=== PATIENT | female | born 1940 | race African-American/Black ===

== ENCOUNTER 2018-01-12 18:22 | Emergency (ER) | payer OTHER ==
[~2018-01-12] VITALS: Ht 162.6 cm; Wt 62.6 kg
[2018-01-12 19:11] LABS: HEMATOCRIT 35.1 % (36.0-46.0); MCH 30.6 PG (29.0-34.0); MCHC 34.2 G/DL (30.0-36.0); MCV 89.5 FL (83-99); PLATELET COUNT 231 K/uL (156-360); RBC DIS.WIDTH-CV 11.5 % (11.8-14.6); RBC DIS.WIDTH-SD 36.9 % (39-53); RED BLOOD COUNT 3.92 M/uL (3.80-5.20); WHITE BLOOD COUNT 7.9 K/uL (4.1-10.2)
[2018-01-12 19:26] LABS: CHLORIDE 98 mEq/L (99-109); SODIUM 140 mEq/L (136-147)
[2018-01-12 19:27] LABS: GLUCOSE 101 mg/dL (70-99)
[2018-01-12 19:31] LABS: CREATININE 0.6 mg/dL (0.6-1.3)
[2018-01-12 19:32] LABS: TROP-I INTERPRETATION NEGATIVE; TROPONIN-I < 0.01 ng/mL (0.0-0.30); UREA NITROGEN (BUN) 12 mg/dL (9-23)
[2018-01-12 19:51] LABS: GFR ESTIMATE (CALCULATED) > 59 mL/min/
[2018-01-12 22:16] LABS: TROP-I INTERPRETATION NEGATIVE; TROPONIN-I 0.01 ng/mL (0.0-0.30)
[2018-01-12] MEDS ORDERED: PRINIVIL10 MG PO (22:28)
[2018-01-12] MEDS ORDERED: K-DUR20 MEQ PO (22:30)
[2018-01-12 22:46] VITALS: BP 115/74
== END 2018-01-12 22:47 | disposition home or self-care (01) ==
LOC: EME 18:22
PROVIDERS: Physician Assistant
DX: I10 Essential (primary) hypertension (principal); R51 Headache; M79.602 Pain in left arm
CPT/HCPCS: 71046; 80048; 81003; 84484; 85027; 93005; 99281; 99284